=== PATIENT | male | born 1955 | race Caucasian/White ===

== ENCOUNTER 2017-11-28 10:37 | Day surgery (SDC) | payer BC ==
[~2017-11-28] VITALS: Ht 167.6 cm; Wt 75.8 kg
[~2017-11-28 10:37] MED LIST: ASPI325; ASPI325 PO; ATOR10 PO; CHLO25B PO; CIPR500 PO; CLON.2 PO; CLOP75 PO; CYAN500; FAMO20 PO; FISH1000; HYDCHL25 PO; METO100ER; METO100ER PO; NIAC500ER PO; NITR.4SL; NITR.4SL SL; OMEP20ER PO; PANT40 PO; RAMI5; RAMI5 PO; ROSU10TA; ROSU10TA PO; TELM80 PO; UBID100 PO; VALSARTAN-HCTZ1 EAC2
== END 2017-11-28 14:10 | disposition home or self-care (01) ==
LOC: ORSCSDS 10:37
PROVIDERS: Internal Medicine Gastroenterology
PROC: 0DBK8ZX Excision of Ascending Colon, Via Natural or Artificial Opening Endoscopic, Diagnostic (ICD-10-PCS; principal; 2017-11-28 12:00)
PROC: 0DBM8ZX Excision of Descending Colon, Via Natural or Artificial Opening Endoscopic, Diagnostic (ICD-10-PCS; principal; 2017-11-28 12:00)
PROC: 0DBH8ZX Excision of Cecum, Via Natural or Artificial Opening Endoscopic, Diagnostic (ICD-10-PCS; principal; 2017-11-28 12:00)
DX: Z12.11 Encounter for screening for malignant neoplasm of colon (principal); D12.0 Benign neoplasm of cecum; D12.4 Benign neoplasm of descending colon; D12.2 Benign neoplasm of ascending colon; K64.8 Other hemorrhoids; I25.2 Old myocardial infarction; I10 Essential (primary) hypertension; F17.210 Nicotine dependence, cigarettes, uncomplicated; K21.9 Gastro-esophageal reflux disease without esophagitis; Z79.01 Long term (current) use of anticoagulants; Z79.899 Other long term (current) drug therapy
CPT/HCPCS: 82947; 88305; J7040

== ENCOUNTER 2025-04-10 13:29 | Emergency (ER) | payer MEDICARE ==
[~2025-04-10] VITALS: Ht 170.2 cm; Wt 74.8 kg
[~2025-04-10 13:29] MED LIST changes: +ASPIR 8181 M1 PO; +FENOFIBRATE48 MG PO; +IRBESARTAN150 M3 PO; +MAGNESIUM OXID400 M3 PO; +METFORMIN HCL500 M3 PO
[2025-04-10 14:12] VITALS: BP 143/74
== END 2025-04-10 17:43 | disposition home or self-care (01) ==
LOC: ER 13:29
DX: S61.012A Laceration without foreign body of left thumb without damage to nail, initial encounter (principal); F17.200 Nicotine dependence, unspecified, uncomplicated; Z23 Encounter for immunization; Z88.0 Allergy status to penicillin; Z88.1 Allergy status to other antibiotic agents; Z88.8 Allergy status to other drugs, medicaments and biological substances; Z79.02 Long term (current) use of antithrombotics/antiplatelets; Z79.82 Long term (current) use of aspirin; Z79.84 Long term (current) use of oral hypoglycemic drugs; Z79.899 Other long term (current) drug therapy; Z59.89 Other problems related to housing and economic circumstances; W27.0XXA Contact with workbench tool, initial encounter
CPT/HCPCS: 12041; 73140; 90471; 90715; 99282-25